=== PATIENT | female | born 1980 | race Caucasian/White ===

== ENCOUNTER → 2018-09-18 | Outpatient (CLI) | payer BC | LOC: SUN.DIA 13:46 | DX: O24.419 Gestational diabetes mellitus in pregnancy, unspecified control (principal); Z3A.32 32 weeks gestation of pregnancy | CPT/HCPCS: G0108 ==

== ENCOUNTER → 2018-10-01 | Outpatient (CLI) | payer BC | LOC: SUN.DIA 14:51 | DX: O24.419 Gestational diabetes mellitus in pregnancy, unspecified control (principal); Z3A.34 34 weeks gestation of pregnancy | CPT/HCPCS: G0108 ==

== ENCOUNTER → 2018-10-29 | Outpatient (CLI) | payer BC | LOC: SUN.DIA 10:03 | DX: O24.419 Gestational diabetes mellitus in pregnancy, unspecified control (principal); Z3A.38 38 weeks gestation of pregnancy | CPT/HCPCS: G0108 ==

== ENCOUNTER 2018-12-03 06:35 | Inpatient (IN) | payer BC ==
[~2018-12-03] VITALS: Ht 170.2 cm; Wt 94.5 kg
[2018-12-03] VITALS (47 sets, daily range): BP systolic 77–178; BP diastolic 50–111; PULSE 57–108; TEMP 97.6–98.3
--- NOTE | 2018-12-03 07:10 | NUR ---
Patient ambulatory to LR5, changed into gown, and FHR/TOCO monitor placed and explained. Patient states she had appointment yesterday and they checked her cervix. Denies any leaking of fluid, vaginal bleeding, or regular contractions. Assessment completed and plan of care discussed. 0730: SVE-/-3 and no fluid noted. Blood pressures elevated and patient aware and states "feels anxious" 0735: IV started in left hand, blood drawn and sent to lab, and LR infusing. Consents gone over and signed and packet given. 0815: Dr. Ba at patients bedside and evaluating patient and FHR strip. Dr. Ba aware of blood pressures and orders to start pitocin, UA with catheter, and CMP. 0818:SVE- per physician -2 and AROM at this time with clear fluid noted. Plan of care discussed and patient verbalizes understanding.
[2018-12-03] MEDS ORDERED: PRENATAL MVI (07:23)
[2018-12-03 08:18] LABS: BASO # 0.1 (0.0-0.2); BASO % 0.6 % (0.0-2.0); EOS # 0.1 (0.0-0.7); EOS % 1.1 % (0-4.0); GRAN # 5.8 (1.4-6.5); GRAN % 67.4 % (42.2-75.2); HEMATOCRIT 42.2 % (37.0-47.0); LYMPH # 1.9 (1.2-3.4); LYMPH % 22.2 % (20.0-51.0); MEAN CELL VOLUME 89 fl (80.0-100.0); MEAN CORPUSCULAR HEMOGLOBIN 29 pg (27.0-31.0); MEAN CORPUSCULAR HGB CONC 33 g/dl (33.0-37.0); MEAN PLATELET VOLUME 12.4 fl (7.4-10.4); MONO # 0.6 (0.1-0.6); MONO % 7.5 % (1.7-9.3); PLATELET COUNT 130 K/mm3 (130-400); RED BLOOD COUNT 4.77 M/mm3 (4.10-5.30); REDCELL DISTRIBUTION WIDTH-CV 13.5 % (11.5-14.5)
[2018-12-03 08:55] LABS: ALBUMIN 3.2 gm/dL (3.5-5.0); BILIRUBIN,TOTAL 0.6 mg/dL (0.0-1.0); CALCIUM 9.2 mg/dL (8.4-10.2); CREATININE, serum 0.88 mg/dL (0.52-1.25); POTASSIUM 4.2 mmol/L (3.4-5.0); TOTAL PROTEIN 6.1 gm/dL (6.4-8.2)
--- NOTE | 2018-12-03 09:35 | NUR ---
Patient requesting epidural. 0935: Abilio Malagon CRNA called and notified. 0946: Patient off monitors to void. 0950: Patient back on monitors and sat up for placement of epidural and [facility] [employer] [employer] at bedside. Difficulty tracing FHR/contractions due to maternal position. Pitocin paused at this time. Ronna OCAMPO having difficulty with placement of epidural. 1029: Test dose given and patient tolerates well. 1032: Patient repositioned left lateral and will continue to monitor. Pitocin continued at this time.
--- NOTE | 2018-12-03 11:15 | NUR ---
1115: Barros catheter placd and patient tolerates well. SVE-4/80/-2
[2018-12-03 11:51] LABS: COLLECTION METHOD CATHETER
[2018-12-03 12:02] LABS: PH 6 (5-8); SQUAMOUS EPITHELIAL 0-2 /hpf; URINE APPEARANCE Clear; URINE BACTERIA None Seen /hpf; URINE BILIRUBIN Negative (NEGATIVE); URINE BLOOD 2+ (NEGATIVE); URINE COLOR Yellow; URINE GLUCOSE Negative (NEGATIVE); URINE KETONE Negative (NEGATIVE); URINE LEUKOCYTE ESTERASE Negative (NEGATIVE); URINE NITRATE Negative (NEGATIVE); URINE PROTEIN(semi-quant) Negative (NEGATIVE); URINE UROBILINOGEN Negative (NEGATIVE); URINE WBC 0-2 /hpf
--- NOTE | 2018-12-03 12:10 | NUR ---
Dr Ba at bedside assessing patient and reviewing FHR strip. SVE per physician and orders to continue with pitocin. Patient repositioned and will continue to monitor.
--- NOTE | 2018-12-03 13:20 | NUR ---
Barros catheter removed and patient tolerates well.
--- NOTE | 2018-12-03 15:15 | NUR ---
SVE-10/100/+1 1520: Dr. Ba called and updated and orders to start pushing and call when needed for delivery.
--- NOTE | 2018-12-03 15:25 | NUR ---
Patient given pushing instructions and verbalizes understanding. 1525: Patient begins to push with this RN. FHR baseline 125-130bpm and recurrent variable decelerations noted.
--- NOTE | 2018-12-03 16:30 | NUR ---
FHR continues to have variable decelerations and returning to baseline.
--- NOTE | 2018-12-03 16:35 | NUR ---
Dr. Ba at bedside and assessing patient and FHR strip. Pushes with patient with each contraction. 1645: Dr Ba at nurses station and this RN continues to push with patient. 1655: Dr Ba in at bedside and pushes with patient.
[2018-12-03] MEDS ORDERED: MOTRIN 800800 MG/TAB PO (16:51)
[2018-12-03] MEDS ORDERED: PERCOCET 325 MG1 TA2 PO (16:51)
--- NOTE | 2018-12-03 17:00 | NUR ---
Dr. Ba continues to push with patient. 1700: Bed taken apart and patient set up for vaginal delivery. FHR showing recurrent variable decelerations. 1713: Spontaneous vaginal delivery of head followed by body. Infant bulb syringed. Infant to mothers abdomen and Mariaa RN assumes care of . Cord clamped by physician and cut by FOB. 1717: Spontaneous delivery of placenta and pitocin started per protocol. Fundal massage done and atony at this time. Patient becomes nauseated and lightheaded, vomits at this time. Physician straight catherizes patient at this time. Dr. Ba orders-hemabate IM, 800mcg of cytotec, and zofran Fundal massage and bleeding moderate. 1728: Hemabate given IM in left thigh. 1730: Cytotec 800mcg rectally per Dr. Ba and Zofran 4mg given IV. Patient continues to feel dizzy and Oxygen 10ml/hr via mask to patient. Dr. Ba repairs 2nd degree laceration. 1745: Fundal massage done, bleeding amount smaller and fundus firmer. Patient states that she is feeling better. Patient repositioned and ice pack to perineum. Fundal massage done and firm Plan of care discussed and will continue to monitor.
--- NOTE | 2018-12-03 18:20 | NUR ---
PT PALE LARGE AMT BRIGHT RED WITH FUNDAL MASSAGE. NO CLOTS. MASSAGED TO FIRM BLADDER NOT DISTENDED. WEAK TIRED. INSTRUCTIED NPO. PITOCIN AT 333ML. / HR.FAMILY AT BEDSIDE WITH BABY.
--- NOTE | 2018-12-03 19:00 | NUR ---
ASHER NOTIFIED. BETTY PANG
--- NOTE | 2018-12-03 19:00 | NUR ---
ST CATH 100CC. SOME NAUSEA.
--- NOTE | 2018-12-03 19:26 | NUR ---
1925 METHERGINE IM GIVEN. LAB DRAW
[2018-12-03 19:55] LABS: HEMATOCRIT 32.9 % (37.0-47.0); HEMOGLOBIN 10.8 g/dl (12.5-16.0)
--- NOTE | 2018-12-03 22:29 | NUR ---
SLEEPS BETWEEN CHECKS. HOB UPRIGHT TO ASSESS OF SHE IS DIZZY WHEN UPRIGHT
--- NOTE | 2018-12-03 22:47 | NUR ---
SITS UPRIGHT- WISHES TO EAT SOUP AND APPLE SAUCE BEFORE TRANSFET TO 207.
--- NOTE | 2018-12-03 23:30 | NUR ---
UNABLE TO VOID ON BEDPAN 100CC ST CATH.SWOLLEN LABIA.
[2018-12-04] VITALS (13 sets, daily range): BP systolic 114–143; BP diastolic 57–82; PULSE 72–90; TEMP 97.4–99
--- NOTE | 2018-12-04 07:00 | NUR ---
Pt up to bathroom with assist from this nurse. Pt denies feeling dizzy but slow to move and has to take frequent breaks. Will notify Dr Ba of CBC results when resulted.
[2018-12-04 07:25] LABS: MEAN CELL VOLUME 88 fl (80.0-100.0); MEAN CORPUSCULAR HGB CONC 35 g/dl (33.0-37.0); MEAN PLATELET VOLUME 12.3 fl (7.4-10.4); PLATELET COUNT 126 K/mm3 (130-400); RED BLOOD COUNT 2.58 M/mm3 (4.10-5.30); REDCELL DISTRIBUTION WIDTH-CV 13.6 % (11.5-14.5)
[2018-12-04 07:26] LABS: HEMATOCRIT 22.7 % (37.0-47.0); MEAN CORPUSCULAR HEMOGLOBIN 31 pg (27.0-31.0)
[2018-12-04 07:27] LABS: HEMOGLOBIN 7.9 g/dl (12.5-16.0)
[2018-12-04 08:33] LABS: BAND 18 % (0-10); LYMPHOCYTE 6 % (20.0-51.0); NEUTROPHILS 72 % (42.0-75.2); PLATELET ESTIMATE NORMAL (NORMAL)
--- NOTE | 2018-12-04 10:00 | NUR ---
Normal saline started and infusing without difficulty at 50ml/hr per order. 1010:25mg Benadryl given IVPB per order. 1015:1st unit of PRBC'S started at 50ml/hr and infusing without difficulty. Signs of reactions reviewed with pt, verbalizes understanding. 1030:VSS, no s/s of rxn noted. Pt resting in bed. Transfusion increased to 75ml/hr.
--- NOTE | 2018-12-04 10:30 | NUR ---
Initial visit; Parents thanked Support Specialist for offering congratulations and God's blessings for the of their son. Support Specialist thanked them for choosing [facility].
--- NOTE | 2018-12-04 11:45 | NUR ---
Pt resting in bed, tolerating PRBC's tranfusion well. Family at bedside. Denies needs.
--- NOTE | 2018-12-04 12:45 | NUR ---
1st unit of PRBC's complete. Pt up to bathroom with assist. Denies any dizziness. 1300:2nd unit of PRBC's started and transfusing at 50ml/hr without difficulty. S/S of reaction reviewed. 1315:No s/s of rxn noted. Transfusion rate increased to 75ml/hr.
[2018-12-04 16:53] LABS: HEMATOCRIT 25.1 % (37.0-47.0); HEMOGLOBIN 8.7 g/dl (12.5-16.0)
[2018-12-05] VITALS (11 sets, daily range): BP systolic 112–142; BP diastolic 58–86; PULSE 14–98; TEMP 97.6–98.7
--- NOTE | 2018-12-05 06:30 | NUR ---
Rests in bed, alert. Denies any needs at this time.
--- NOTE | 2018-12-05 06:30 | NUR ---
Rests in bed, alert. States wanting to take shower. Let her know to pull cord in bathroom if needed help.
--- NOTE | 2018-12-05 07:30 | NUR ---
Rests in bed, alert. Assist patient with baby.
[2018-12-05] MEDS ORDERED: COLACE 100100 MG/CAP PO (07:42)
[2018-12-05] MEDS ORDERED: NEWMANS TOP (07:42)
[2018-12-05 07:59] LABS: HEMATOCRIT 23.2 % (37.0-47.0); HEMOGLOBIN 8.1 g/dl (12.5-16.0)
--- NOTE | 2018-12-05 11:30 | NUR ---
Rests in bed, alert. Patient given an option to have one more unit of packed red blood cells. Patient request to have one more unit as ordered by Dr. Shannon.
--- NOTE | 2018-12-05 13:30 | NUR ---
Rests in bed, alert. Transfusion continues, denies any shortness of breath or pain anywhere. Family at bedside.
--- NOTE | 2018-12-05 14:30 | NUR ---
baby with sns done by spouse.
--- NOTE | 2018-12-05 17:25 | NUR ---
Pt called out stating she is starting to have a rash on her neck. Rash noted to right side of neck. Pt denies feeling SOB or any other trasnfusion reaction. Trasnfusion stopped. BP 140/86, pulse 80, temp 97.9. 1727: updated on pts status and orders received. PO benadryl given and new orders explained to pt.
[2018-12-06 00:45] VITALS: BP 120/63; PULSE 67
[2018-12-06 07:00] VITALS: BP 127/75; PULSE 75; TEMP 98
[2018-12-06 07:37] LABS: MEAN CELL VOLUME 88 fl (80.0-100.0); MEAN CORPUSCULAR HGB CONC 34 g/dl (33.0-37.0); MEAN PLATELET VOLUME 11.8 fl (7.4-10.4); PLATELET COUNT 125 K/mm3 (130-400); RED BLOOD COUNT 3.15 M/mm3 (4.10-5.30); REDCELL DISTRIBUTION WIDTH-CV 15.8 % (11.5-14.5)
[2018-12-06 07:38] LABS: HEMATOCRIT 27.8 % (37.0-47.0); HEMOGLOBIN 9.3 g/dl (12.5-16.0); MEAN CORPUSCULAR HEMOGLOBIN 30 pg (27.0-31.0)
[2018-12-06 08:19] LABS: BAND 16 % (0-10); EOSINOPHIL 2 % (0-4); LYMPHOCYTE 20 % (20.0-51.0); METAMYELOCYTE 1 % (0-0); NEUTROPHILS 56 % (42.0-75.2); PLATELET ESTIMATE NORMAL (NORMAL)
[2018-12-07] MEDS ORDERED: NORMODYNE100 MG PO (03:05)
== END 2018-12-06 12:20 | disposition home or self-care (01) | DRG 806 ==
LOC: LDR 06:35 → OB 12-04 03:50
PROVIDERS: Obstetrics & Gynecology; Student in an Organized Health Care Education/Training Program; ADMIT Obstetrics & Gynecology
PROC: 10E0XZZ Delivery of Products of Conception, External Approach (ICD-10-PCS; principal; 2018-12-03)
PROC: 0KQM0ZZ Repair Perineum Muscle, Open Approach (ICD-10-PCS; 2018-12-03)
PROC: 3E033VJ Introduction of Other Hormone into Peripheral Vein, Percutaneous Approach (ICD-10-PCS; 2018-12-03)
PROC: 10907ZC Drainage of Amniotic Fluid, Therapeutic from Products of Conception, Via Natural or Artificial Opening (ICD-10-PCS; 2018-12-03)
DX: O48.0 Post-term pregnancy (principal); O72.1 Other immediate postpartum hemorrhage; Z37.0 Single live birth; D62 Acute posthemorrhagic anemia; Z3A.40 40 weeks gestation of pregnancy; O24.420 Gestational diabetes mellitus in childbirth, diet controlled; O13.4 Gestational [pregnancy-induced] hypertension without significant proteinuria, complicating childbirth; O69.81X0 Labor and delivery complicated by cord around neck, without compression, not applicable or unspecified; O70.1 Second degree perineal laceration during delivery; O99.02 Anemia complicating childbirth
CPT/HCPCS: J1200; J2210; J2405; J2550; J2590; J7050; J7120; P9016

== ENCOUNTER 2018-12-07 01:07 | Emergency (ER) | payer BC ==
[~2018-12-07] VITALS: Ht 172.7 cm; Wt 90.9 kg
[~2018-12-07 01:07] MED LIST: COLACE 100100 MG/CAP PO; MOTRIN 800800 MG/TAB PO; NEWMANS TOP; PERCOCET 325 MG1 TA2 PO; PRENATAL MVI
[2018-12-07 01:14] VITALS: TEMP 97.6
[2018-12-07 01:26] LABS: HEMOGLOBIN 10.6 g/dl (12.5-16.0); MEAN CELL VOLUME 88 fl (80.0-100.0); MEAN CORPUSCULAR HEMOGLOBIN 30 pg (27.0-31.0); MEAN CORPUSCULAR HGB CONC 34 g/dl (33.0-37.0); MEAN PLATELET VOLUME 11.1 fl (7.4-10.4); PLATELET COUNT 176 K/mm3 (130-400); RED BLOOD COUNT 3.57 M/mm3 (4.10-5.30); REDCELL DISTRIBUTION WIDTH-CV 15.2 % (11.5-14.5)
[2018-12-07 01:32] LABS: HEMATOCRIT 31.5 % (37.0-47.0)
[2018-12-07 01:36] LABS: CALCIUM 8.9 mg/dL (8.4-10.2); CREATININE, serum 0.75 mg/dL (0.52-1.25); POTASSIUM 4.4 mmol/L (3.4-5.0)
[2018-12-07 01:58] LABS: COLLECTION METHOD CATHETER
[2018-12-07 02:03] LABS: PH 6 (5-8); SQUAMOUS EPITHELIAL None Seen /hpf; URINE APPEARANCE Clear; URINE BACTERIA None Seen /hpf; URINE BILIRUBIN Negative (NEGATIVE); URINE BLOOD 1+ (NEGATIVE); URINE COLOR Straw; URINE GLUCOSE Negative (NEGATIVE); URINE KETONE Negative (NEGATIVE); URINE LEUKOCYTE ESTERASE Negative (NEGATIVE); URINE NITRATE Negative (NEGATIVE); URINE PROTEIN(semi-quant) Negative (NEGATIVE); URINE RBC 0-2 /hpf; URINE UROBILINOGEN Negative (NEGATIVE)
[2018-12-07 02:20] LABS: BAND 9 % (0-10); LYMPHOCYTE 15 % (20.0-51.0)
[2018-12-07 02:21] LABS: TOXIC GRANULATION PRESENT
[2018-12-07 02:23] LABS: HYPOCHROMIA 1+
[2018-12-07 02:30] LABS: NEUTROPHILS 74 % (42.0-75.2)
[2018-12-07] MEDS ORDERED: NORMODYNE100 MG PO (03:05)
[2018-12-07 03:17] VITALS: BP 142/88; PULSE 68
[2018-12-07 09:46] LABS: PATHOLOGY DIFF REVIEW OK +
== END 2018-12-07 03:15 | disposition home or self-care (01) ==
LOC: COL.ER 01:07
PROVIDERS: Emergency Medicine
DX: O72.2 Delayed and secondary postpartum hemorrhage (principal); R03.0 Elevated blood-pressure reading, without diagnosis of hypertension
CPT/HCPCS: J7030

== ENCOUNTER → 2018-12-11 | Outpatient (CLI) | payer BC ==
[~2018-12-11] MED LIST changes: +NORMODYNE100 MG PO
--- NOTE | 2018-12-11 15:39 | NUR ---
Pt, Nette Phillip, presents for outpatient consult with 8 day old baby boy, Eliezer Phillip and her spouse, Alverto. Eliezer was not latching at time of discharge and Nette had complications of PP hemorrhage. Eliezer was born on [birth year] and weighed 7#15oz. He was supplemented regularly while in the hospital b/c Nette was not able to breastfeed due to delivery complications. We did work with latching prior to discharge but Eliezer did more biting than nursing even with SNS. Pt has been pumping and bottle feeding EBM and formula, about 2oz every 2-3 hours. His weight today is 7#8.9oz (3428 gms). She is able to collect about 25ml per pumping, approximately every 4 hours. Eliezer struggles to latch, his muscles are flexed and firm making it difficult to get a good position and latch. He bites with latching on the left side; repositioned to right side and able to nurse a few minutes. He seems to get frustrated at the breast, perhaps from low milk supply or because he does not keep his tongue extended well and comes off the breast easily. He does have a weight gain of 6 gms after a this short feeding. A nipple shield is placed, he nurses for a few minutes, staying attached better but only transfers 2 ml, even with SNS. Eventually Eliezer latches to the right breast again with SNS and has 5-7 minutes of strong, nutrative sucking. LC works with finger feeding to evaluate tongue placement and use; he lets the tongue drop off the finger while feeding. LC evaluates for ankyloglossia, there is an impedance when sweeping the finger inside the lower jaw arch. Summary of intake: 8ml , 60ml formula via mixed methods of SNS, finger feeding and bottle feeding. Plan of care: focus on milk supply, pump more frequently, power pump, consider herbal supplements. Continue supplement, may offer upto 3oz as tolerated as he has been feeding more frequently. May offer breast as desired. Consider evaluation of lingual frenulum, and body tightness. Follow up SundayDecember 16. Question invited and answered.
== END ==
LOC: LAC 13:54
DX: Z39.1 Encounter for care and examination of lactating mother (principal); Z71.89 Other specified counseling

== ENCOUNTER → 2018-12-16 | Outpatient (CLI) | payer BC ==
--- NOTE | 2018-12-16 14:18 | NUR ---
Pt, Nette Phillip, presents for follow-up outpatient consult with 13 day old baby boy, Eliezer Phillip. She is accompanied by her spouse, Alverto as well. Eliezer was born on [birth year] and weighed 7#15oz. He had latch difficulty at time of discharge and has been bottle feeding while pt continues to work on and milk supply. Last week Eliezer weighed 7#8.9oz (3427 gms). He continues to receive a combination of EBM and formula by bottle, taking about 70ml per feeding 8 to 10 times daily. Nette continues to pump 6-8 times daily and collects an average of 40ml per pumping, slightly more if she power pumps, and an increase from last weeks average of 25ml. She states he has nursed better a few times in the last couple days, still using the nipple shield. Today Eliezer weighs 7#15.7oz (3620 gms). Nette works with Eliezer , using a nipple shield. Eliezer takes several attempts to latch and has biting motion frequently that results in him being removed from the breast and relatched. Pt provides Eliezer a little from the bottle to get him to settle as he is pretty impatient initially. Eventually he settles and nurses the left breast for approx. 10 min and then the right side as well. Weight gain after is 22gms. He is fed the remainder of his 2oz bottle, for a total intake of 86 ml per pre and post feed weights. Plan of care: Continue feeding plan and working on . Discussed gradual improvement of milk supply and variation of options going forward as her will return to work tomorrow. Follow up: Pt will contact this LC if she feels a consult will be beneficial in the next week. Questions invited and answered.
== END ==
LOC: LAC 13:40
DX: Z39.1 Encounter for care and examination of lactating mother (principal); Z71.89 Other specified counseling

== ENCOUNTER → 2020-11-08 | Outpatient (CLI) | payer BC | LOC: DIA.ED | DX: O24.419 Gestational diabetes mellitus in pregnancy, unspecified control (principal) | CPT/HCPCS: G0108 ==

== ENCOUNTER → 2021-01-10 | Outpatient (CLI) | payer BC | LOC: ZCOL.LAB 12:00 | DX: Z20.822 Contact with and (suspected) exposure to COVID-19 (principal) ==

== ENCOUNTER 2021-01-13 09:41 | Inpatient (IN) | payer BC ==
[~2021-01-13] VITALS: Ht 170.2 cm; Wt 90.0 kg
[2021-01-13] VITALS (45 sets, daily range): BP systolic 97–145; BP diastolic 55–91; PULSE 58–99; TEMP 98.2–98.7
--- NOTE | 2021-01-13 09:50 | NUR ---
Patient ambulatory to LR4 with spouse, changed into gown, FHR/TOCO monitors placed and explained. Patient here for induction, denies any regular contractions/leaking of fluid/vaginal bleeding/decreased movement. Assessment completed/consents signed/ packet given. 1010: IV started in left hand, blood obtained and to lab, LR infusing. Plan of care discussed. 1017: Pitocin induction disucussed and patient agrees. Pitocin started at 2mU/hr per protocol. 1155: Dr. Ba at bedside and assessing patient and FHR strip. SVE-3/90/-2 and AROM at this time with clear fluid noted. Plan of care discussed.
[2021-01-13 10:56] LABS: BASO % 0.4 % (0.0-2.0); EOS # 0.1 (0.0-0.7); EOS % 0.5 % (0-4.0); GRAN # 6.8 (1.4-6.5); GRAN % 72.1 % (42.2-75.2); HEMATOCRIT 40.6 % (37.0-47.0); HEMOGLOBIN 13.5 g/dl (12.5-16.0); LYMPH # 1.7 (1.2-3.4); LYMPH % 17.5 % (20.0-51.0); MEAN CELL VOLUME 91 fl (80.0-100.0); MEAN CORPUSCULAR HEMOGLOBIN 30 pg (27.0-31.0); MEAN CORPUSCULAR HGB CONC 33 g/dl (33.0-37.0); MEAN PLATELET VOLUME 11.5 fl (7.4-10.4); MONO # 0.8 (0.1-0.6); MONO % 8.8 % (1.7-9.3); PLATELET COUNT 172 K/mm3 (130-400); RED BLOOD COUNT 4.48 M/mm3 (4.10-5.30); REDCELL DISTRIBUTION WIDTH-CV 13.8 % (11.5-14.5)
--- NOTE | 2021-01-13 12:20 | NUR ---
Patient checks own blood sugar at this time- 81.
--- NOTE | 2021-01-13 12:30 | NUR ---
Patient requests epidural and Arslan OCAMPO called and notified. 1330: Patient sitting up for placement of epidural. Ken Taylor SALES ATTENDANT at bedside. 1339: Single shot given at this time and patient tolerates well. 1345: Patient repositioned and safety precautions/plan of care discussed. 1430: Patient takes own blood sugar- 67 1440: Barros catheter placed by [employer] RN student and patient tolerates well. SVE- 6-7/[address]/-[address] Ba called and notified. Patient left lateral with right leg resting in stirrup.
--- NOTE | 2021-01-13 14:45 | NUR ---
FHR baseline decreasing to 115bpm. 1520: Patient right lateral with left leg resting. 1545: SVE-10/100/[address] Ba notified and on the way. 1550: Patient takes own blood sugar- 99. Barros catheter removed. 1605: Dr. Ba here and patient prepped for vaginal delivery. 1608: Patient begins pushing with contractions. Variable decelerations noted. 1614: Spontaneous vaginal of viable female-head followed by body. Infant to patient Meliton olvera RN assumes care of . Cord clamped by physician and cut by FOB. Cord blood obtained. 1616: Manual extraction of placenta. Pitocin bolus started at 333ml/hr per protocol. Fundal massage done/bleeding WNL. Bimanual extraction of membranes and curette used at this time. Physician repairs laceration. Fundal massage done/firm/bleeing WNL. 1630: Methergine ordered at this time and given in left thigh. 1632: Cytotec ordered and Dr. Ba places 800cytotec rectally at this time. 1639: Barros catheter placed and patient tolerates well. Fundal massage done/firm/bleeding WNL. 1643: Vaginal packing placed. Patient updated on plan of care and possible outcome if she continues to bleed later. Patient and spouse verbalize understand. Plan of care discussed. Patient repositioned and ice pack to perineum. 1745: Dr. Ba at bedside assessing patient and vaginal packing removed.
[2021-01-13 16:54] LABS: BASO # 0.1 (0.0-0.2); BASO % 0.4 % (0.0-2.0); EOS % 0.3 % (0-4.0); GRAN % 75.8 % (42.2-75.2); HEMOGLOBIN 12.3 g/dl (12.5-16.0); LYMPH # 2.2 (1.2-3.4); LYMPH % 16.5 % (20.0-51.0); MEAN CELL VOLUME 94 fl (80.0-100.0); MEAN CORPUSCULAR HEMOGLOBIN 30 pg (27.0-31.0); MEAN CORPUSCULAR HGB CONC 32 g/dl (33.0-37.0); MONO # 0.8 (0.1-0.6); MONO % 6.4 % (1.7-9.3); PLATELET COUNT 174 K/mm3 (130-400); RED BLOOD COUNT 4.17 M/mm3 (4.10-5.30); REDCELL DISTRIBUTION WIDTH-CV 13.7 % (11.5-14.5)
[2021-01-13 17:33] LABS: PROTHROMBIN TIME 11.1 SECONDS (9.7-12.8)
[2021-01-13 19:13] LABS: BASO # 0.1 (0.0-0.2); BASO % 0.5 % (0.0-2.0); GRAN # 19.4 (1.4-6.5); GRAN % 89.1 % (42.2-75.2); HEMATOCRIT 40.3 % (37.0-47.0); HEMOGLOBIN 12.6 g/dl (12.5-16.0); LYMPH # 1.1 (1.2-3.4); LYMPH % 4.8 % (20.0-51.0); MEAN CELL VOLUME 97 fl (80.0-100.0); MEAN CORPUSCULAR HEMOGLOBIN 30 pg (27.0-31.0); MEAN CORPUSCULAR HGB CONC 31 g/dl (33.0-37.0); MEAN PLATELET VOLUME 11.6 fl (7.4-10.4); MONO # 1.1 (0.1-0.6); PLATELET COUNT 121 K/mm3 (130-400); RED BLOOD COUNT 4.15 M/mm3 (4.10-5.30); REDCELL DISTRIBUTION WIDTH-CV 13.8 % (11.5-14.5)
[2021-01-14] VITALS (18 sets, daily range): BP systolic 95–127; BP diastolic 52–78; PULSE 66–90; TEMP 97.7–98.6
[2021-01-14 06:55] LABS: BASO % 0.4 % (0.0-2.0); EOS % 0.3 % (0-4.0); GRAN # 8.7 (1.4-6.5); GRAN % 76.8 % (42.2-75.2); LYMPH # 1.7 (1.2-3.4); MEAN CELL VOLUME 93 fl (80.0-100.0); MEAN CORPUSCULAR HGB CONC 32 g/dl (33.0-37.0); MEAN PLATELET VOLUME 11.2 fl (7.4-10.4); MONO # 0.8 (0.1-0.6); MONO % 6.9 % (1.7-9.3); PLATELET COUNT 112 K/mm3 (130-400); RED BLOOD COUNT 2.84 M/mm3 (4.10-5.30); REDCELL DISTRIBUTION WIDTH-CV 13.7 % (11.5-14.5)
[2021-01-14 07:05] LABS: HEMATOCRIT 26.3 % (37.0-47.0); HEMOGLOBIN 8.5 g/dl (12.5-16.0); MEAN CORPUSCULAR HEMOGLOBIN 30 pg (27.0-31.0)
[2021-01-15 03:00] VITALS: BP 90/51; PULSE 76; TEMP 98.4
[2021-01-15 07:33] VITALS: BP 121/74; PULSE 84; TEMP 98.3
[2021-01-15 08:21] LABS: BASO % 0.5 % (0.0-2.0); EOS # 0.1 (0.0-0.7); EOS % 0.8 % (0-4.0); GRAN # 5.6 (1.4-6.5); GRAN % 70.6 % (42.2-75.2); LYMPH # 1.7 (1.2-3.4); LYMPH % 21.3 % (20.0-51.0); MEAN CELL VOLUME 94 fl (80.0-100.0); MEAN CORPUSCULAR HGB CONC 32 g/dl (33.0-37.0); MEAN PLATELET VOLUME 11.2 fl (7.4-10.4); MONO # 0.4 (0.1-0.6); MONO % 5.4 % (1.7-9.3); PLATELET COUNT 128 K/mm3 (130-400); RED BLOOD COUNT 2.75 M/mm3 (4.10-5.30); REDCELL DISTRIBUTION WIDTH-CV 14.1 % (11.5-14.5)
[2021-01-15 08:22] LABS: HEMATOCRIT 25.9 % (37.0-47.0); HEMOGLOBIN 8.2 g/dl (12.5-16.0); MEAN CORPUSCULAR HEMOGLOBIN 30 pg (27.0-31.0)
[2021-01-15] MEDS ORDERED: MOTRIN 800800 MG/TAB PO (08:44)
[2021-01-15] MEDS ORDERED: PERCOCET 325 MG1 TA2 PO (08:45)
== END 2021-01-15 09:30 | disposition home or self-care (01) | DRG 806 ==
LOC: LDR 09:41 → OB 13:12
PROVIDERS: Obstetrics & Gynecology; ADMIT Obstetrics & Gynecology
PROC: 10E0XZZ Delivery of Products of Conception, External Approach (ICD-10-PCS; principal; 2021-01-13)
PROC: 0KQM0ZZ Repair Perineum Muscle, Open Approach (ICD-10-PCS; 2021-01-13)
PROC: 10D17Z9 Manual Extraction of Products of Conception, Retained, Via Natural or Artificial Opening (ICD-10-PCS; 2021-01-13)
PROC: 10907ZC Drainage of Amniotic Fluid, Therapeutic from Products of Conception, Via Natural or Artificial Opening (ICD-10-PCS; 2021-01-13)
PROC: 0UQGXZZ Repair Vagina, External Approach (ICD-10-PCS; 2021-01-13)
DX: O24.420 Gestational diabetes mellitus in childbirth, diet controlled (principal); O72.2 Delayed and secondary postpartum hemorrhage; Z37.0 Single live birth; O99.02 Anemia complicating childbirth; D64.9 Anemia, unspecified; O69.81X0 Labor and delivery complicated by cord around neck, without compression, not applicable or unspecified; O43.213 Placenta accreta, third trimester; O70.1 Second degree perineal laceration during delivery; Z3A.39 39 weeks gestation of pregnancy
CPT/HCPCS: J2210; J2590; J2795; J7120

== ENCOUNTER → 2024-01-01 | Outpatient (CLI) | payer BC | LOC: MC.RAD 10:59 | DX: Z12.31 Encounter for screening mammogram for malignant neoplasm of breast (principal) ==